=== PATIENT | female | born 1945 | race Caucasian/White ===

== ENCOUNTER 2019-04-18 08:42 | Day surgery (SDC) | payer OTHER ==
[2019-04-19] MEDS ORDERED: SYNTHROID50 MCG (01:44)
[2019-04-19] MEDS ORDERED: LOSARTAN POTASS25 MG (01:44)
== END 2019-04-18 13:45 | disposition home or self-care (01) ==
LOC: AMB-ENDOS 08:42
DX: K57.32 Diverticulitis of large intestine without perforation or abscess without bleeding (principal)

== ENCOUNTER 2019-04-19 01:16 | Inpatient (IN) | payer OTHER ==
[~2019-04-19] VITALS: Ht 157.5 cm; Wt 74.8 kg
[2019-04-19] MEDS ORDERED: SYNTHROID50 MCG (01:44)
[2019-04-19] MEDS ORDERED: LOSARTAN POTASS25 MG (01:44)
--- NOTE | 2019-04-19 01:44 | NUR ---
SE RECIBE PACIENTE DE UNIDAD DE AMBULANCIA ALERTA Y ORIENTADA X3 QUE REFIERE DOLOR DE ABDOMEN FAUSTO Y DISTENSION DESDE POR LA MANANA. PACIENTE VERBALIZA QUE EN LA MANANA LE HICIERON UN COLONOSCOPIA Y ORTEGA TENIDO DOLOR DESDE EL PROCEDIMIENTO. PACIENTE VERBALIZA WU TENIDO DIARRHEAS Y VOMITOS TAMBIEN DESPUES DEL PROCEDIMIENTO.
--- NOTE | 2019-04-19 03:15 | NUR ---
PACIENTE ALERTA Y ORIENTADA X3, CON BUEN PATRON RESPIRATORIO Y SIGNOS VITALES ESTABLES, NO REFIERE DOLOR AL MOMENTO. LLEGA CON IV DE [facility]OS[facility]ITAL [facility]. SE HIRA MUESTRAS BAJO MEDIDAS ASEPTICAS. SE AMDINISTRA MEDICAMENTO ROSITA ORDENADO. SE GAVINO TRANQUILA EN SILLA, CON BARANDAS ELEVADAS.
[2019-04-29] MEDS ORDERED: INTESTINEX680 M1 PO (10:04)
[2019-04-29] MEDS ORDERED: PERCOCET 5-3251 EACH PO (10:04)
== END 2019-04-29 11:30 | disposition home or self-care (01) | DRG 330 ==
LOC: ER 01:16 → SURH 07:52
PROVIDERS: ADMIT Surgery
PROC: BW21ZZZ Computerized Tomography (CT Scan) of Abdomen and Pelvis (ICD-10-PCS; 2019-04-19)
PROC: 02HV33Z Insertion of Infusion Device into Superior Vena Cava, Percutaneous Approach (ICD-10-PCS; 2019-04-20)
PROC: 3E0336Z Introduction of Nutritional Substance into Peripheral Vein, Percutaneous Approach (ICD-10-PCS; 2019-04-20)
PROC: B827ZZZ Computerized Tomography (CT Scan) of Bilateral Eyes (ICD-10-PCS; 2019-04-21)
PROC: 0DTP4ZZ Resection of Rectum, Percutaneous Endoscopic Approach (ICD-10-PCS; 2019-04-24)
PROC: 0DQB4ZZ Repair Ileum, Percutaneous Endoscopic Approach (ICD-10-PCS; 2019-04-24)
PROC: 0DJD8ZZ Inspection of Lower Intestinal Tract, Via Natural or Artificial Opening Endoscopic (ICD-10-PCS; 2019-04-24)
PROC: 0DTN4ZZ Resection of Sigmoid Colon, Percutaneous Endoscopic Approach (ICD-10-PCS; principal; 2019-04-24 18:00)
DX: K57.20 Diverticulitis of large intestine with perforation and abscess without bleeding (principal); K56.690 Other partial intestinal obstruction; R18.8 Other ascites; K51.40 Inflammatory polyps of colon without complications; K91.71 Accidental puncture and laceration of a digestive system organ or structure during a digestive system procedure; E11.9 Type 2 diabetes mellitus without complications; Z79.4 Long term (current) use of insulin; I11.9 Hypertensive heart disease without heart failure; E03.8 Other specified hypothyroidism; J01.00 Acute maxillary sinusitis, unspecified; J01.30 Acute sphenoidal sinusitis, unspecified; K52.89 Other specified noninfective gastroenteritis and colitis; K38.2 Diverticulum of appendix

== ENCOUNTER 2019-05-13 10:32 | Emergency (ER) | payer OTHER ==
[~2019-05-13] VITALS: Ht 157.5 cm; Wt 72.6 kg
[~2019-05-13 10:32] MED LIST: INTESTINEX680 M1 PO; LOSARTAN POTASS25 MG; PERCOCET 5-3251 EACH PO; SYNTHROID50 MCG
[2019-05-13] MEDS ORDERED: METFORMIN HCL500 MG (10:57)
== END 2019-05-13 15:33 | disposition home or self-care (01) ==
LOC: ER 10:32
DX: R10.13 Epigastric pain (principal); R11.2 Nausea with vomiting, unspecified; R42 Dizziness and giddiness

== ENCOUNTER 2025-08-02 12:43 | Emergency (ER) | payer OTHER ==
[~2025-08-02] VITALS: Ht 165.1 cm; Wt 57.6 kg
[~2025-08-02 12:43] MED LIST changes: +METFORMIN HCL500 MG
[2025-08-02] MEDS ORDERED: ONDANSETRON HCL 4 MG in 0.9 % SODIUM CHLORIDE 50 ML IV ONE (14:00)
[2025-08-02] MEDS ORDERED: 0.9 % SODIUM CHLORIDE 1,000 ML IV SCH (14:00)
[2025-08-02] MEDS ORDERED: FAMOTIDINE/PF 20 MG in 0.9 % SODIUM CHLORIDE 8 ML IV PUSH ONE (14:00)
[2025-08-02] MEDS ORDERED: HYOSCYAMINE SULFATE 0.125 MG TAB.SUBL SL ONE (14:00)
[2025-08-02] MEDS ORDERED: HYOSCYAMINE SULFATE 0.125 MG TAB.SUBL ONE (14:54)
[2025-08-02] MEDS ORDERED: ONDANSETRON HCL 2 MG/ML VIAL ONE (14:54)
[2025-08-02] MEDS ORDERED: FAMOTIDINE/PF 20 MG/2 ML VIAL ONE (14:55)
[2025-08-02 16:16] LABS: BASO % 0.7 % (0.1-1.2); EOS # 0.45 (0.04-0.54); EOS % 7.5 % (0.7-7.0); LYMPH # 1.71 (1.18-3.74); LYMPH % 28.4 % (19.3-53.1); MEAN PLATELET VOLUME 9.20 fl (9.4-12.4); MONO # 0.51 (0.24-0.82); MONO % 8.5 % (4.7-12.5); NEUT # 3.29 (1.56-6.13); NEUT % 54.6 % (34.0-71.1); RED CELL DISTRIBUTION WIDTH 13.8 % (11.6-14.4)
[2025-08-02 16:35] LABS: INR 1.01
[2025-08-02 16:41] LABS: ALT/SGPT 14.0 U/L (12-78); AST/SGOT 11.0 U/L (15-37); BILIRUBIN TOTAL 0.49 mg/dL (0.3-1.2); BUN CREA RATIO 22.0 (7.0-25.0); CREATININE SERUM 0.79 mg/dL (0.55-1.02); GFR 69.85; GLOBULINA 4.0 G/DL (2.4-3.5); GLUCOSE FASTING 85.0 mg/dL (65-100); OSMOLALITY SERUM 288.0 MOSM/KG (275-295)
[2025-08-02] MEDS ORDERED: ENALAPRILAT DIHYDRATE 1.25 MG/ML VIAL IV ONE ×2 (18:15→18:55)
== END 2025-08-02 21:50 | disposition home or self-care (01) ==
LOC: ER 12:44
PROVIDERS: General Practice
DX: R10.32 Left lower quadrant pain (principal); K57.30 Diverticulosis of large intestine without perforation or abscess without bleeding; K42.9 Umbilical hernia without obstruction or gangrene; E11.9 Type 2 diabetes mellitus without complications; Z79.84 Long term (current) use of oral hypoglycemic drugs; I10 Essential (primary) hypertension
CPT/HCPCS: 36415; 74176; 96365; 96366; 99283; J2405; J3490